=== PATIENT | female | born 1980 | race Caucasian/White ===

== ENCOUNTER → 2022-08-27 | Outpatient (CLI) | payer OTHER, SELFPAY ==
[2022-08-27 15:19] LABS: Absolute Lymphocyte Count 2.02 X10^3/uL (0.83-4.51); Basophil# 0.02 X10^3/uL; Basophil% 0.2 % (0-1); Eosinophil# 0.05 X10^3/uL; Eosinophils% 0.6 % (0-5); Hematocrit 40.2 % (37-47); Hemoglobin 12.9 g/dL (12.0-15.0); Lymphocyte # 2.02 X10^3/ul (0.83-4.51); Lymphocyte % 22.7 % (19-41); Mean Corp Hgb Conc 32.1 g/dL (32-36); Mean Corpuscular Hgb 26.9 pg (27.0-32.0); Mean Corpuscular Volume 83.8 fL (81-99); Mean Platelet Vol. 10.8 fl (6.2-12.0); NRBC Flagged by Analyzer 0 % (0-5); Neutrophil # 5.98 X10^3/uL (2.7-7.7); Neutrophil % 67.1 % (47-70); Platelet Count 364 K/mm3 (150-450); RBC Distribution Width CV 14.2 % (11.6-14.6); RBC Distribution Width SD 43.4 fl (35.1-43.9); White Blood Count 8.9 K/mm3 (4.4-11.0)
[2022-08-27 16:14] LABS: Estradiol 240.4 pg/mL; Follicle Stimulating Hormone 7.6 mIU/mL; Luteinizing Hormone 20.7 mIU/mL; Prolactin 19.2 ng/mL; T4 Free Direct 1.13 ng/dL (0.76-1.46); Thyroid Stim Hormone (TSH) 1.35 uIU/mL (0.358-3.74)
[2022-08-30 19:07] LABS: Testosterone, Free 0.29 ng/dL (0.10-0.85); Testosterone, Total 16 ng/dL (4-50)
[2022-08-30 20:05] LABS: Testosterone, % Free 1.83 % (0.50-2.80)
[2022-09-04 15:15] LABS: HPV APTIMA, High Risk Negative (Negative)
== END | disposition home or self-care (01) ==
PROVIDERS: Visit Provider Obstetrics & Gynecology
DX: N93.9 Abnormal uterine and vaginal bleeding, unspecified (principal)
CPT/HCPCS: 36415; 82670; 83001; 83002; 84146; 84402; 84403; 84439; 84443; 85025; 87624; 88175; G0145

== ENCOUNTER → 2022-09-05 | Outpatient (CLI) | payer OTHER, SELFPAY ==
--- NOTE | 2022-09-05 09:10 | EMB_PTH ---
PATIENT: AMERICA JAQUEZ LOC: [facility] U#:[id number] AGE/SX: 42/F ROOM: RE09/05/[address]: Dr. Joel Mitchell MD : 1980 BED: DIS: 09/05/2022 SPEC #: [id number] RECD: 09/05/22 09:54 STATUS: DANICA INNA #: [id number] CUBA: 09/05/22 09:[address]: Joel Mitchell DEPT: SURGICAL PATHOLOGY RECD BY: Cynthia Luna Tissues: Endometrium, NOS Procedures: Surgery Specimen Level IV HEADER OPERATION: Endometrial biopsy PRE-OP DIAGNOSIS: Abnormal uterine bleeding TISSUE SUBMITTED: Endometrial biopsy MICROSCOPIC DIAGNOSIS Endometrial biopsy: Secretory endometrium. KATHLEEN:sunitha 09/06/2022 MICROSCOPIC DESCRIPTION Slides are reviewed. GROSS DESCRIPTION Received in fixative is one container labeled with the patient's name and designated endometrial biopsy. The specimen consists of multiple fragments of pink hemorrhagic soft tissue that in aggregate measure 2.5 x 2.0 x 0.2 cm. The specimen is totally submitted in one cassette. / SJ:rg 09/05/2022 TC:4 CPT: 54248
== END | disposition home or self-care (01) ==
LOC: LABSPEC 09:48
PROVIDERS: Visit Provider Obstetrics & Gynecology
DX: N93.9 Abnormal uterine and vaginal bleeding, unspecified (principal)
CPT/HCPCS: 88305